=== PATIENT | female | born 1985 | race American Indian/Alaskan Native ===

== ENCOUNTER 2018-08-11 16:33 | Outpatient (CLI) | payer OTHER | END 2018-08-11 18:16 | disposition HB | LOC: NST 16:33 → EDBD 16:33 → NST 18:16 | DX: Z34.83 Encounter for supervision of other normal pregnancy, third trimester (principal) ==

== ENCOUNTER → 2018-08-18 | Outpatient (CLI) | payer OTHER | END | disposition home or self-care (01) | LOC: NST 16:50 | DX: Z34.83 Encounter for supervision of other normal pregnancy, third trimester (principal) ==

== ENCOUNTER 2020-06-22 10:41 | Outpatient (CLI) | payer OTHER | END 2020-06-22 12:38 | disposition home or self-care (01) | LOC: NST 10:41 | PROVIDERS: ATTEND Obstetrics & Gynecology | DX: Z34.83 Encounter for supervision of other normal pregnancy, third trimester (principal) ==